=== PATIENT | male | born 1985 | race Caucasian/White ===

== ENCOUNTER 2021-08-15 08:06 | Day surgery (SDC) | payer OTHER ==
[~2021-08-15] VITALS: Ht 205.7 cm; Wt 84.4 kg
[~2021-08-15 08:06] MED LIST: LIDOCAINE 2% 100MG/5ML SDV (FOR ANES.) As Ordered ONE; NS 1,000 ML IV ONE; propofoL 200 MG/20 ML VIAL As Ordered ONE
[2021-08-15 10:04] VITALS: BP 104/75
== END 2021-08-15 10:07 | disposition home or self-care (01) ==
LOC: M OPP 08:06
PROVIDERS: ATTEND Internal Medicine Gastroenterology
DX: Z12.11 Encounter for screening for malignant neoplasm of colon (principal); Z80.0 Family history of malignant neoplasm of digestive organs; Z83.71 Family history of colonic polyps; K64.0 First degree hemorrhoids; K63.89 Other specified diseases of intestine; Z87.891 Personal history of nicotine dependence

== ENCOUNTER → 2022-06-01 | Outpatient (CLI) | payer OTHER | LOC: M PLAIMG 09:02 | PROVIDERS: ATTEND Physician Assistant | DX: R06.00 Dyspnea, unspecified (principal) ==